=== PATIENT | male | born 1965 | race African-American/Black ===

== ENCOUNTER 2019-03-07 06:13 | Day surgery (SDC) | payer BC ==
[2019-03-05 16:38] VITALS: BMI 35.4
[2019-03-07] MEDS ORDERED: DEXAMETHASONE SOD PHOSPHATE 4 MG/1 ML VIAL ONE (07:27)
[2019-03-07] MEDS ORDERED: LIDOCAINE HCL 1%, 10 MG/ML (20ML VIAL) ONE (07:27)
[2019-03-07] MEDS ORDERED: BUPIVACAINE HCL/PF 0.5% (5 MG/ML) 30 ML VIAL IJ ONE ×2 (07:27→08:15)
[2019-03-07] MEDS ORDERED: LIDOCAINE HCL 2% (20ML MULTI-DOSE VIAL) NR ONE (07:28)
[2019-03-07] MEDS ORDERED: MIDAZOLAM HCL 2 MG/2 ML SINGLE DOSE VIAL ONE ×3 (07:39→08:40)
[2019-03-07] MEDS ORDERED: SUCCINYLCHOLINE CHLORIDE 200 MG/10 ML SYRINGE ONE (07:39)
[2019-03-07] MEDS ORDERED: PROPOFOL 20 ML ONE ×2 (07:39)
[2019-03-07] MEDS ORDERED: ceFAZolin SODIUM 1 GM VIAL IVPB ONE (08:00)
[2019-03-07] MEDS ORDERED: LIDOCAINE HCL 2% (50ML VIAL) INF ONE (08:15)
[2019-03-07 10:58] VITALS: BP 129/85; PULSE 71; TEMP 97.9
--- NOTE | 2019-03-10 13:17 | OP ---
DATE OF OPERATION: 03/07/2019 PREOPERATIVE DIAGNOSIS: Painful right foot 5th digit hammertoe deformity with adductovarus rotation. POSTOPERATIVE DIAGNOSIS: Painful right foot 5th digit hammertoe deformity with adductovarus rotation. PROCEDURE: Right foot 5th digit proximal interphalangeal joint arthroplasty with derotational skin plasty. ANESTHESIA: Local with IV sedation. SURGEON: Vipin Mayen DPM HEMOSTASIS: Pneumatic ankle tourniquet set at 250 mmHg. ESTIMATED BLOOD LOSS: Minimal. MATERIALS: 3-0 Vicryl and 4-0 nylon. INJECTABLES: Preoperatively, 5 mL of a 1:1 mixture of 1% lidocaine plain and 0.5% Marcaine plain. Postoperatively, a mixture of 1 mL of dexamethasone and 4 mL of 0.5% Marcaine plain. PATHOLOGY: Bone. COMPLICATIONS: None. CONDITION: Stable. DESCRIPTION: Patient was brought to the operating room and placed on the operating table in the supine position. A pneumatic ankle tourniquet was then placed on the patient's right ankle. Following IV sedation, local anesthesia was obtained utilizing 5 mL of a 1:1 mixture of 1% lidocaine plain and 0.5% Marcaine plain. The right foot was then scrubbed, prepped and draped in the usual aseptic manner. An Esmarch bandage was then utilized to exsanguinate the patient's right foot, and the tourniquet was then inflated. Attention was then directed to the right foot 5th digit, which was noted to be in adductovarus rotation and underlapping the 4th digit. At this time 2 converging 2-cm semi-elliptical longitudinal incisions were made running from distal medial to proximal lateral across the proximal interphalangeal joint of the digit. The incision was then deepened through the subcutaneous tissues with care to retract all vital neural and vascular structures. The ellipse of skin was then removed and passed from the operative field utilizing sharp and blunt dissection. All bleeders were ligated and cauterized as necessary. A transverse tenotomy and capsulotomy was then performed to the proximal interphalangeal joint of the 5th digit of the right foot. The head of the proximal phalanx was then freed of its soft tissue attachments and a small sagittal saw was then used to resect the head of the proximal phalanx, which was then passed from the operative field. The distal end of the phalanx was then smoothed of all rough edges utilizing a bone rasp. The wound was then flushed with copious amounts of sterile saline, and the extensor tendon was then reapproximated using 3-0 Vicryl. Skin was reapproximated using 4-0 nylon completing the derotational skin plasty. At the completion of the procedure, a total of 5 mL mixture consisting of 1 mL of dexamethasone and 4 mL of 0.5% Marcaine plain was then infiltrated to the surgical site. The incision site was then dressed with Xeroform and then covered with sterile compressive dressing consisting of 4 x 4's, Kerlix, and at that time the tourniquet was then deflated and immediate hyperemia returned to all digits of the right foot. Coban was then applied to the right foot to secure the dressings. Patient tolerated the procedure well and was transferred from the operating room to the recovery room with all vital signs stable and neurovascular status intact to the right foot. Following a period of postoperative monitoring, the patient was discharged and given instructions and prescriptions, which were discussed prior to the surgery. The patient will follow up in the private office in approximately 1 week. SERENITY LOVELL/[id number] MTDSvitlana
--- NOTE | 2019-03-11 11:34 | PATH ---
Surgical Pathology Report Patient Name: NE DURAN [facility]. Rec. #: [id number] /Age/Gender: 1965 (Age: 53) / M Account: [id number] Location: [facility] SURGICAL Taken: 03/07/2019 Received: 03/07/2019 Reported: 03/11/2019 Physicians: Vipin Mayen DPM Specimen(s) Received RIGHT TOE BONE AND TISSUE Clinical History Right foot hammer toe Final Diagnosis RIGHT 5th TOE, BONE AND TISSUE, EXCISION: PORTIONS OF BONE WITH FATTY MARROW SHOWING FOCAL DEGENERATIVE CHANGE. SEGMENT OF ACRAL SKIN WITH NO SIGNIFICANT PATHOLOGIC CHANGE. Electronically Signed Artur Brown M.D. Gross Description Received in formalin labeled "right 5th toe bone and tissue" are 2 fragments of bone measuring 1 x 0.7 x 0.7 and 1 x 0.5 x 0.3 cm. Also received is a sutton skin ellipse which measures 1.5 x 0.5 centimeters, excised to a depth of 0.2 cm. The specimen is entirely submitted after brief calcifications in one cassette. MLSZ/03/08/2019 stephie/03/08/2019
== END 2019-03-07 11:10 | disposition home or self-care (01) ==
LOC: JASU-SURG 06:13
PROVIDERS: ATTEND Podiatrist
PROC: 0SRP0JZ Replacement of Right Toe Phalangeal Joint with Synthetic Substitute, Open Approach (ICD-10-PCS; principal; 2019-03-07 07:30)
DX: M20.41 Other hammer toe(s) (acquired), right foot (principal)
CPT/HCPCS: 73630-TC-LT; 73630-TC-RT-FY; 82962; 88304-TC; 88311-TC; 94760